=== PATIENT | male | born 1960 | race Caucasian/White ===

== ENCOUNTER 2019-12-30 10:21 | Outpatient (CLI) | payer MEDICARE, SELFPAY ==
[2019-12-30 10:39] LABS: Basophils Absolute Auto 0.1 K/mm3 (0.0-0.1); Basophils Percent Auto 1.3 % (0.2-1.2); Eosinophils Absolute Auto 0.1 K/mm3 (0-0.3); Eosinophils Percent Auto 1.5 % (0-4.4); Hematocrit 46.6 % (42.0-52.0); Hemoglobin 15.5 g/dL (14.0-18.0); Immature Granulocyte Absolute 0.04 K/mm3 (0.00-0.031); Immature Granulocyte Percent A 0.4 % (0-0.5); Lymphocytes Absolute Auto 2.76 K/mm3 (0.9-3.2); Mean Corpuscular HGB Conc 33.3 g/dl (32-36); Mean Corpuscular Hemoglobin 32.1 pg (26-34); Mean Corpuscular Volume 96.5 fl (80-100); Monocytes Absolute Auto 0.5 K/mm3 (0.1-0.6); Monocytes Percent Auto 5.9 % (2.6-8.5); Neutrophils Absolute Auto 5.6 K/mm3 (1.3-6.7); Neutrophils Percent Auto 60.9 % (45.5-73.1); Platelet Count Result 283 k/mm3 (150-375); Red Blood Count 4.83 M/mm3 (4.6-6.20); Red Cell Distribution Width 13.2 % (11.5-14.5); White Blood Count 9.2 K/mm3 (4.5-10.0)
== END 2019-12-30 10:22 | disposition home or self-care (01) ==
LOC: ANHLAB 10:25
PROVIDERS: PCP Internal Medicine; Visit Provider Clinical Nurse Specialist
DX: D72.829 Elevated white blood cell count, unspecified (principal)
CPT/HCPCS: 36415; 85025

== ENCOUNTER 2021-01-09 12:07 | Emergency (ER) | payer MEDICARE, SELFPAY ==
[2021-01-09 12:26] VITALS: BP 105/74; PULSE 79; RESP 18; TEMP 37; O2SAT 100
--- NOTE | 2021-01-09 13:18 | ED.GENADULT ---
HPI - General Adult General Chief complaint: Upper Respiratory Infection Stated complaint: Sore Throat Source: patient, family and RN notes reviewed Mode of arrival: ambulatory Limitations: no limitations History of Present Illness HPI narrative: Patient states he has had lower throat/anterior neck pain for 2 weeks, states he has had nasal congestion and sinus drainage for one week and has had a sore throat ; he states ice cream helps the sore throat, but states nothing helps his lower sore throat/neck pain. States pain is next to previous surgical incision on anterior midline of neck. Patient has history of throat cancer 15 years ago with surgical excision. States he uses his marijuana for pain control with minimal relief. Patient has not used OTC medications for sore throat or nasal congestion. States he has not followed up for his throat cancer in 15 years. Related Data Allergies Allergy/AdvReac Type Severity Reaction Status Date / Time No Known Allergies Allergy Verified 01/09/21 12:41 Review of Systems Review of Systems: CONSTITUTIONAL: Denies body aches, fever, chills, or sweats. EYES: Denies visual changes, redness, or discharge. ENT:+ sore throat, + nasal congestion, + rhinorrhea. RESPIRATORY: Denies dyspnea, + cough. GASTROINTESTINAL: Denies abdominal pain, nausea, vomiting, or diarrhea. GENITOURINARY: Denies dysuria or hematuria. SKIN: Denies rash, itching, or wounds.+ bump on right neck MUSCULOSKELETAL: Denies back pain, joint pain, or myalgia. NEUROLOGIC: Denies headache, numbness, tingling, or weakness. PSYCH: Denies depression or anxiety. [facility] Past Medical History Medical History (Updated 01/09/21 @ 13:35 by Angela Gonsales, [facility], ) Alzheimer disease Heartburn Hypertension Seizures Skin cancer Removed 2001 Teeth missing 2 teeth missing Throat cancer Removed 2012 Surgical History Surgical History H/O hand surgery Right 1994 Family History Family History Mother Patient's mother is in good health Father Carcinoma of colon Cancer of kidney Sibling Breast cancer Other Family history of coronary artery disease Social History Social History Smoking status: Current every day smoker Smoking end date: 04/08/12 Alcohol intake: current Alcohol use details: occasional Comments At time of signature, I have reviewed and agree with nursing past medical, surgical, social and family history unless otherwise noted. Please see nursing chart for further information. There is no relevant family history pertinent to the presenting complaint. Exam Narrative: GENERAL: chronically ill -appearing and in no acute distress. HEAD: Normocephalic, atraumatic. EYES: EOMI. No redness or drainage. Conjunctivae normal. ENT: Mucous membranes pink and moist. Clear rhinorrhea. Orpharynx erythematous, Tonsils are 3+. No exudate noted. NECK: Normal AROM. Supple. Quarter sized, firm nodule to right anterior neck. No fluctuance, no erythema, no swelling to neck. Patient can swallow normally. Voice is hoarse, baseline for patient. CHEST: No respiratory distress. Clear to auscultation. HEART: Regular rate and rhythm. No murmur appreciated. Normal peripheral pulses. MUSCULOSKELETAL: No bony tenderness. EXTREMITIES: Normal range of motion. No edema. SKIN: Warm, dry, no rash. Capillary refill normal. Normal skin turgor. NEURO: No focal deficits. Alert and oriented x3. Gait steady. PSYCH: Normal affect. No signs of depression or anxiety. Course Course Emergency Course: Discussion with patient regarding diagnostic limitations at [facility]. Agrees to follow up with PCP or ENT for further work-up. Vital Signs Vital signs: Vital Signs Temperature 98.6 F 01/09/21 12:26 Pulse Rate 79 01/09/21 12:26 Respiratory Rate
== END 2021-01-09 13:50 | disposition home or self-care (01) ==
PROVIDERS: Emergency Provider Nurse Practitioner; PCP Internal Medicine
DX: J02.9 Acute pharyngitis, unspecified (principal); F17.200 Nicotine dependence, unspecified, uncomplicated; G30.9 Alzheimer's disease, unspecified; F02.80 Dementia in other diseases classified elsewhere, unspecified severity, without behavioral disturbance, psychotic disturbance, mood disturbance, and anxiety; R12 Heartburn; I10 Essential (primary) hypertension; Z85.828 Personal history of other malignant neoplasm of skin; Z85.818 Personal history of malignant neoplasm of other sites of lip, oral cavity, and pharynx
CPT/HCPCS: 87081; 87880; 99213; G0463